=== PATIENT | male | born 1995 | race Two or more races ===

== ENCOUNTER 2023-12-21 09:03 | Emergency (ER) | payer OTHER, SELFPAY ==
[2023-12-21 09:05] VITALS: BP 129/79; PULSE 89; RESP 16; TEMP 36.1; O2SAT 98; BMI 21.9
--- NOTE | 2023-12-21 09:26 | EDS_ITS ---
HPI History of Present Illness Chief Complaint: Dental Narrative Narrative: 28-year-old male presenting with pain in the upper lip. 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 He states that he had some pain on the upper inside of his lip for about 5 years. He states that the area inside of his upper lip has been swelling for years and is getting worse. He denies any trauma. He denies difficulty swallowing or breathing. He is not nauseous or vomiting. He does not have dental pain. PFSH PFSH Allergy/AdvReac Type Severity Reaction Status Date / Time No Known Allergies Allergy Verified 12/21/23 09:04 Social History Smoking Status: Never smoker ROS ROS ED Constitutional Constitutional ED: Denies chills, fever(s) or sweats Eyes Eyes: Denies blurry vision or change in vision ENT ENT ED: Reports other Details: Upper lip pain ; Denies ear pain or sore throat Cardiovascular Cardiovascular: Denies chest pain, palpitations or racing heartbeat Respiratory/Chest Respiratory/Chest: Denies cough, dyspnea or sputum Gastrointestinal Gastrointestinal: Denies abdominal pain, constipation, diarrhea, nausea or vomiting Genitourinary Genitourinary ED: Denies dysuria, hematuria or urinary frequency Musculoskeletal Musculoskeletal: Denies arthralgias, myalgias or neck pain Integumentary Denies abscess, Abrasions or rash Neurologic Neurologic: Denies headache(s), paresthesias or weakness Psychiatric Psychiatric: Denies anxiety, depression, suicidal ideation or suicidal thoughts Endocrine Endocrinology: Denies polydipsia or polyuria EXAM Physical Exam Const Vital Signs: 12/21/23 09:05 Temperature 97 F L Temperature Source Temporal Pulse Rate 89 Respiratory Rate 16 Blood Pressure 129/79 H Blood Pressure Mean 95 Pulse Ox 98 Oxygen Delivery Method Room Air Positive well nourished General Appearance ED: NAD HEENT HEENT Narrative: There is very mild tenderness to palpation of the inside of the upper lip. There is symmetrical swelling on both sides of the inside of the upper lip but no fluctuance. There is no erythema or drainage. Mouth ED: Yes oral and palatal mucosa normal and Yes tongue normal Mouth: oral and palatal mucosa normal and tongue normal Throat: posterior oropharynx normal Eyes PERRL Neck no lymphadenopathy Cardio regular rate and regular rhythm Neuro oriented x3 Sensorium / Orientation: alert Psych mental status grossly normal Skin no rashes or lesions noted MDM MDM MDM Narrative Medical decision making narrative: Patient presents with pain in his upper lip which has been going on for about 5 years. [employer] phone was used. Initially I did not see what patient was complaining about on examination but he showed me a picture of his lip completely inverted and there appears to be symmetric growth or swelling on the inside of the upper lip but it does not look like it is acute. There are no rash, vesicles, ulcerations. Is not causing any airway problems or swallowing difficulties. The tongue is normal. Sublingual area is free of edema. Dentition normal. Posterior oropharynx patent without stridor. Counseled the patient that his best course of action would be to follow-up with ENT. I gave him a referral. Tylenol ibuprofen. Return precautions discussed. Impression: 1. Lip pain Discharge Plan Triage Chief Complaint: Dental ED Provider: Adeel Terrazas Dx/Rx/DC Orders Clinical Impression: Pain in gums Referrals: Db Campbell MD [Med Staff - Active Staff] - As Needed Print Language: Danish Disposition Disposition: Home, Self Care
[2023-12-21 09:39] VITALS: BP 122/86; PULSE 84; RESP 16; TEMP 37.1; O2SAT 98
== END 2023-12-21 09:47 | disposition home or self-care (01) ==
LOC: ED 09:40
PROVIDERS: Emergency Provider Student in an Organized Health Care Education/Training Program; Visit Provider Student in an Organized Health Care Education/Training Program
DX: K13.79 Other lesions of oral mucosa (principal)
CPT/HCPCS: 99282